=== PATIENT | female | born 1965 | race Caucasian/White ===

== ENCOUNTER 2017-05-07 13:48 | Emergency (ER) | payer BC ==
[2017-05-07] MEDS ORDERED: DIPH,PERTUS(ACELL)TETVAC-LF 0.5 ML VIAL IM ONE (15:46)
--- NOTE | 2017-05-07 15:47 | ED ---
Wound/Laceration HPI - General Chief Complaint: Wound/Laceration Stated Complaint: Fall Time Seen by Provider: 05/07/17 15:10 Source: patient, RN notes reviewed, old records reviewed Mode of arrival: ambulatory Limitations: no limitations - History of Present Illness Initial Comments: this is a 52-year-old male presents emergency Department chief complaint of chin laceration. Patient reports that she was running, tripped over uneven cement and landed falling forward on her hands and knees and chin. Patient reports that during the impact with her chin. She reports that she cleansed her teeth. She states that she did have a chipped tooth #20. Patient states that she has no pain in her teeth. Denies any pain with jaw movement. Denies any loss of consciousness. She states the bleeding continued. She reports that she did finish her 6 mile run after tripping and falling. Patient reports that she needs a tetanus shot. - Related Data Previous Rx's Medication Instructions Recorded Amoxicillin 500 mg PO Q12HR #20 cap 05/07/17 Allergies Allergy/AdvReac Type Severity Reaction Status Date / Time No Known Allergies Allergy Verified 05/07/17 13:58 Review of Systems ROS Statement: Those systems with pertinent positive or pertinent negative responses have been documented in the HPI. ROS Other: All systems not noted in ROS Statement are negative. Past Medical History Past Medical History: Cancer Additional Past Medical History / Comment(s): breast ca History of Any Multi-Drug Resistant Organisms: None Reported Past Surgical History: Breast Surgery Past Psychological History: No Psychological Hx Reported Smoking Status: Never smoker Past Alcohol Use History: Occasional Past Drug Use History: None Reported General Exam - General Exam Comments Initial Comments: 52-year-old female to emergency Department chief complaint Chin laceration. Patient is on appear in acute distress. Limitations: no limitations General appearance: alert, in no apparent distress Head exam: Present: atraumatic, normocephalic, normal inspection Eye exam: Present: normal appearance, PERRL, EOMI. Absent: scleral icterus, conjunctival injection, periorbital swelling ENT exam: Present: normal exam, mucous membranes moist, other (present laceration over the chin. Laceration is deep. Full range of motion of the jaw. Patient on several has chipped tooth #20 and 19. No evidence of gum bleeding or swelling.) Neck exam: Present: normal inspection. Absent: tenderness, meningismus, lymphadenopathy Respiratory exam: Present: normal lung sounds bilaterally. Absent: respiratory distress, wheezes, rales, rhonchi, stridor Cardiovascular Exam: Present: regular rate, normal rhythm, normal heart sounds. Absent: systolic murmur, diastolic murmur, rubs, gallop, clicks GI/Abdominal exam: Present: soft, normal bowel sounds. Absent: distended, tenderness, guarding, rebound, rigid Extremities exam: Present: normal inspection, full ROM, normal capillary refill. Absent: tenderness, pedal edema, joint swelling, calf tenderness Back exam: Present: normal inspection Neurological exam: Present: alert, oriented X3, CN II-XII intact Psychiatric exam: Present: normal affect Skin exam: Present: warm, dry, intact, normal color. Absent: rash Course Vital Signs 05/07/17 05/07/17 13:55 16:20 Temperature 96.9 F L 97.8 F Pulse Rate 87 78 Respiratory 18 20 Rate Blood Pressure 95/67 122/66 O2 Sat by Pulse 100 98 Oximetry Procedures - Laceration Laceration #1 Site: face (chin) Size (cm): 2 Description: linear Depth: involves muscle layer Anesthetic Used: lidocaine 1% Anesthesia Technique: local infiltration Amount (mls): 3 Pre-repair: wound explored, irrigated extensively Type of Sutures: nylon Size of Sutures: 6-0 Number of Sutures: 4 Technique: simple, interrupted Patient Tolerated Procedure: well, no complications Medical Decision Making - Medical Decision Making This is a 52 year old femael with CC of chin laceratin after tripping while running today. Paitent reports she landed on her hands and the majority of impact was on her chin. Patient reports that there is no pain over her hands. She had no LOC, continued to run 6 miles after falling. Mandible xray is negative for fracture. She also chipped lower left molar. Patient wound was irrigted and closed with 4 sutures. Patient will be discharged with head injury instructions, and advised to monitor for infection. Patient agrees to treatment plan and will comply. Return parameters discussed. - Radiology Data Radiology results: report reviewed Preliminary there soft tissue laceration and focal soft tissue swelling without fracture dislocation of mandible. Disposition Clinical Impression: Chin laceration, Tooth fracture Disposition: HOME SELF-CARE Condition: Good Instructions: Facial Laceration (ED) Additional Instructions: Please return to the emergency room in 8-10 days to have sutures removed. Please leave wound covered for the first 24-48 hours and then leave open to air after that time. Please use clean soap and water to clean the suture area to prevent scabbing over the top of your sutures. Please watch for any signs of infection which may include but not limited to increased pain, swelling, redness , fever or chills. Please return to the emergency room if any signs of infection do occur. Please return to the emergency room for any other concerns or complications. patient should also follow up with dentist in regards to tooth fracture. Take the antibiotic as prescribed to ensure no dental infection. Prescriptions: Amoxicillin 500 mg PO Q12HR #20 cap Referrals: Barbie Negrete MD [Primary Care Provider] - 1-2 days Time of Disposition: 16:07
--- NOTE | 2017-05-07 15:54 | XR ---
EXAMINATION TYPE: XR mandible complete DATE OF EXAM: 05/07/2017 COMPARISON: NONE HISTORY: Pain and laceration to the chin TECHNIQUE: 5 radiographic views of the mandible were obtained. FINDINGS: Laceration is seen of the patient's premandibular soft tissues with soft tissue swelling an d without evidence of fracture or dislocation. Mandibular condyles are located within the mandibular fossa. Mastoid air cells and visualized paranasal sinuses are well aerated. Nasal septum appears midl ine. IMPRESSION: Premandibular soft tissue laceration and focal soft tissue swelling without fracture or d islocation of the mandible.
[2017-05-07 16:20] VITALS: BP 122/66; PULSE 78; RESP 20; TEMP 97.8
== END 2017-05-07 16:20 | disposition home or self-care (01) ==
LOC: EC 13:48
DX: S01.81XA Laceration without foreign body of other part of head, initial encounter (principal); S02.5XXA Fracture of tooth (traumatic), initial encounter for closed fracture; Z85.3 Personal history of malignant neoplasm of breast; Z98.890 Other specified postprocedural states; Z23 Encounter for immunization; W18.09XA Striking against other object with subsequent fall, initial encounter; Y93.02 Activity, running
CPT/HCPCS: 12011; 70110; 90471; 90715; 99284